=== PATIENT | male | born 1975 | race African-American/Black ===

== ENCOUNTER 2016-09-24 17:08 | Emergency (ER) | payer OTHER ==
[2016-09-24 17:35] VITALS: RESP 18; TEMP 97.7
--- NOTE | 2016-09-24 18:35 | ED ---
Upper Extremity HPI - General Chief Complaint: Extremity Injury, Upper Stated Complaint: Shoulder Pain Time Seen by Provider: 09/24/16 18:22 Source: patient, RN notes reviewed Mode of arrival: ambulatory Limitations: no limitations - History of Present Illness Initial Comments: 41-year-old male presents to the emergency department with a chief complaint of chronic right shoulder pain. Patient states he has history of right shoulder pain he can injections in the shoulder that is PAIN in the past. Patient states that it is flaring up again today. Patient states the bruises as discussed with ID degrees with movement of the right arm. Patient states he does have full range of motion there is chest pain of 93. Patient states there is no falls traumas or injuries to the arm. Patient states she's been playing appropriately last day or so. Wondering if we can give him something to help him with his discomfort. Patient states he also history of hemorrhoids. Patient states no smoking to the area and some light bleeding from the hemorrhoids. Patient states that his stools themselves haven't been normal has not noticed any black tarry stools. Patient states she's been doing absence THAT if there is anything else that can help summarize. Patient states she's also had these hemorrhoids for about a year now.Patient denies any recent fever , chills, shortness of breath, chest pain, back pain, abdominal pain, nausea vomiting, numbness or tingling, dysuria or hematuria, constipation or diarrhea, headaches or visual changes, or any other current symptoms. - Related Data Previous Rx's Medication Instructions Recorded Ibuprofen [Motrin] 600 mg PO Q6HR PRN #20 tab 09/24/16 Phenylephrine HCl/[place] Butter 1 each RC BID #20 supp.rect 09/24/16 [Preparation H Suppository] Allergies Allergy/AdvReac Type Severity Reaction Status Date / Time red dye Allergy Swelling Verified 09/24/16 17:35 shellfish derived Allergy Swelling Verified 09/24/16 17:35 Review of Systems ROS Statement: Those systems with pertinent positive or pertinent negative responses have been documented in the HPI. ROS Other: All systems not noted in ROS Statement are negative. Past Medical History Past Medical History: No Reported History History of Any Multi-Drug Resistant Organisms: None Reported Past Surgical History: No Surgical Hx Reported Past Psychological History: No Psychological Hx Reported Smoking Status: Current every day smoker Past Alcohol Use History: Occasional Past Drug Use History: None Reported General Exam Limitations: no limitations ENT exam: Present: normal exam, mucous membranes moist Neck exam: Present: normal inspection. Absent: tenderness, meningismus, lymphadenopathy Respiratory exam: Present: normal lung sounds bilaterally. Absent: respiratory distress, wheezes, rales, rhonchi, stridor Cardiovascular Exam: Present: regular rate, normal rhythm, normal heart sounds. Absent: systolic murmur, diastolic murmur, rubs, gallop, clicks Rectal exam: Present: normal rectal tone, hemorrhoids. Absent: bloody stool, fecal impaction Extremities exam: Present: normal inspection, full ROM (There is pain with any degree lateral lifting of the right shoulder), normal capillary refill. Absent : tenderness, pedal edema, joint swelling, calf tenderness Neurological exam: Present: alert, oriented X3 Psychiatric exam: Present: normal affect, normal mood Skin exam: Present: warm, dry, intact, normal color. Absent: rash Course Vital Signs 09/24/16 17:31 Temperature 97.7 F Pulse Rate 10 L Respiratory 18 Rate Blood Pressure 121/83 O2 Sat by Pulse 100 Oximetry Medical Decision Making - Medical Decision Making 41-year-old male presents emergency Department chief complaint of chronic right shoulder pain as well as hemorrhoids. This time patient's rectal exam does not show any gross thrombosed hemorrhoids. Some tenderness with patient on hemorrhoids suppositories. We also discussed with him Motrin for shoulder pain and we discussed follow-up with orthopedics this return parameters all patient' s questions. He stated he understood these plan. She will be discharged. Disposition Clinical Impression: Chronic right shoulder pain, Bleeding hemorrhoids Disposition: HOME SELF-CARE Condition: Stable Instructions: Hemorrhoids (ED), Shoulder Pain (ED) Additional Instructions: Please use medication as discussed. Please follow up with family doctor if symptoms have not improved over the next two days. Please return to the emergency room if your symptoms increase or worsen or for any other concerns. Prescriptions: Ibuprofen [Motrin] 600 mg PO Q6HR PRN #20 tab PRN Reason: Pain Phenylephrine HCl/[place] Butter [Preparation H Suppository] 1 each RC BID #20 supp.rect Referrals: Cory Carroll MD [STAFF PHYSICIAN] - 1-2 days Jerry Diane MD [STAFF PHYSICIAN] - 1-2 days Time of Disposition: 18:33
[2016-09-24 18:52] VITALS: BP 120/72; PULSE 64
== END 2016-09-24 18:47 | disposition home or self-care (01) ==
LOC: EC 17:08
DX: M25.511 Pain in right shoulder (principal); G89.29 Other chronic pain; K64.9 Unspecified hemorrhoids; F17.200 Nicotine dependence, unspecified, uncomplicated; Z91.013 Allergy to seafood; Z91.09 Other allergy status, other than to drugs and biological substances
CPT/HCPCS: 99283

== ENCOUNTER 2017-12-15 22:59 | Emergency (ER) | payer OTHER ==
[2017-12-15 23:08] VITALS: BP 117/83; PULSE 98; RESP 20; TEMP 98.2
[2017-12-15] MEDS ORDERED: DIPH,PERTUS(ACELL)TETVAC-LF 0.5 ML VIAL IM ONE (23:20)
--- NOTE | 2017-12-15 23:30 | ED ---
Upper Extremity HPI - General Chief Complaint: Extremity Injury, Upper Stated Complaint: IHS-Finger lac Time Seen by Provider: 12/15/17 23:11 Source: patient Mode of arrival: ambulatory Limitations: no limitations - History of Present Illness Initial Comments: This a 6-year-old male who denies past history presenting today for chief complaint of laceration to the right ring finger tip 7 days ago. 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 Patient just applied pressure and continue to work. He then tried super gluing the skin back on, however today the skin peeled off of his finger and he presents today to see if he needed further intervention. Patient denies if fever, chills, night sweats, increasing warmth and tenderness of the finger or purulent drainage. Additionally he denies any deep pain, numbness, tingling, loss of sensation, difficulty ranging at the MCP PIP or DIP joints of the affected finger. Patient states his tetanus is not up-to-date. Patient denies any recent shortness of breath, chest pain, back pain, abdominal pain, nausea or vomiting, numbness or tingling, dysuria or hematuria, constipation or diarrhea, headaches or visual changes, or any other complaints. - Related Data Home Medications Medication Instructions Recorded Confirmed No Known Home Medications 12/15/17 12/15/17 Allergies Allergy/AdvReac Type Severity Reaction Status Date / Time red dye Allergy Swelling Verified 09/24/16 17:35 shellfish derived Allergy Swelling Verified 09/24/16 17:35 Review of Systems ROS Statement: Those systems with pertinent positive or pertinent negative responses have been documented in the HPI. ROS Other: All systems not noted in ROS Statement are negative. Constitutional: Denies: fever, chills Respiratory: Denies: cough, dyspnea, wheezes, hemoptysis, stridor Cardiovascular: Denies: chest pain, palpitations Endocrine: Denies: fatigue Gastrointestinal: Denies: abdominal pain, nausea, vomiting Genitourinary: Denies: urgency, dysuria Musculoskeletal: Denies: joint swelling, arthralgia Skin: Reports: as per HPI Neurological: Denies: headache, weakness, numbness, paresthesias Past Medical History Past Medical History: No Reported History History of Any Multi-Drug Resistant Organisms: None Reported Past Surgical History: No Surgical Hx Reported Past Psychological History: No Psychological Hx Reported Smoking Status: Current every day smoker Past Alcohol Use History: Rare Past Drug Use History: None Reported General Exam - General Exam Comments Initial Comments: General: The patient is awake and alert, in no distress, and does not appear acutely ill. Eye: Pupils are equal, round and reactive to light, extra-ocular movements are intact. No nystagmus. There is normal conjunctiva bilaterally. No signs of icterus. Neck: The neck is supple, there is no tenderness or JVD. Cardiovascular: There is a regular rate and rhythm. No murmur, rub or gallop is appreciated. Respiratory: Lungs are clear to auscultation, respirations are non-labored, breath sounds are equal. No wheezes, stridor, rales, or rhonchi. Musculoskeletal: Normal ROM at the MCP, DIP and PIP joints of all 5 digits of the right hand, no tenderness. Strength 5/5. Sensation intact. Radial pulses equal bilaterally 2+. Capillary refill <2 seconds. Neurological: A&O x 3. CN II-XII intact, There are no obvious motor or sensory deficits. Coordination appears grossly intact. Speech is normal. Skin: Skin is warm and dry. Healing 1 cm laceration that involved 1/8 of the nailbed to the right ring finger medial aspect, there is no surround erythema, drainage, warmth to palpation. Psychiatric: Cooperative, appropriate mood & affect, normal judgment. Limitations: no limitations Course Vital Signs 12/15/17 23:04 Temperature 98.2 F Pulse Rate 98 Respiratory 20 Rate Blood Pressure 117/83 O2 Sat by Pulse 99 Oximetry Medical Decision Making - Medical Decision Making 42yo with cc of laceration 7 days ago. Given time of injury primary closure is not indicated. There are no signs of secondary infection. LAceration appear superficial no suspicion for damage to underlying structures or open fx. Area cleansed with idodine and sterile water. Bacitracin and sterile bandage applied as well as a finger split for additional protection. Pt recevied TDaP. Case discussed with Dr. Diallo at this time we feel patient is stable for discharge. Pt was instructed to use OTC ibuprofen or tylenol for pain as needed , and to return to the ER for signs of infection including warmth, tenderness, drainage, increasing erythema fever, chills. Patient stated that he agreed with plan. Patient discharged in stable condition. Disposition Clinical Impression: Laceration of finger with delay in treatment Disposition: HOME SELF-CARE Condition: Good Instructions: Laceration Without Closure (ED), Finger Laceration (ED) Additional Instructions: Please use over the counter medication as discussed. Please follow-up with family doctor in the next 2 days of symptoms have not improved. Please return to emergency room if the symptoms increase or worsen or for any other concerns, as discussed. Is patient prescribed a controlled substance at d/c from ED?: No Referrals: None,Stated [Primary Care Provider] - 1-2 days Time of Disposition: 23:30
== END 2017-12-15 23:55 | disposition home or self-care (01) ==
LOC: EC 22:59
DX: S61.214A Laceration without foreign body of right ring finger without damage to nail, initial encounter (principal); F17.200 Nicotine dependence, unspecified, uncomplicated; Z91.013 Allergy to seafood; Z91.09 Other allergy status, other than to drugs and biological substances; Z23 Encounter for immunization; W26.8XXA Contact with other sharp object(s), not elsewhere classified, initial encounter; Y92.89 Other specified places as the place of occurrence of the external cause
CPT/HCPCS: 90471; 90715; 99283

== ENCOUNTER 2020-04-18 09:52 | Emergency (ER) | payer OTHER ==
[2020-04-18 09:57] VITALS: BP 134/92; PULSE 94; RESP 16
[2020-04-18 09:58] VITALS: TEMP 98.7
[2020-04-18] MEDS ORDERED: LIDOCAINE 1% INJ 10MG/ML (20 ML MDV) SQ ONE (10:10)
--- NOTE | 2020-04-18 10:41 | ED ---
Wound/Laceration HPI - General Chief Complaint: Wound/Laceration Stated Complaint: IHS-hand lac Time Seen by Provider: 04/18/20 10:01 Source: patient, RN notes reviewed Mode of arrival: ambulatory Limitations: no limitations - History of Present Illness Initial Comments: This a 44-year-old male presents emergency Department chief complaint of left hand laceration. Patient has 3 lacerations 1 to the palmar aspect second to the fifth digit and the third to fourth digit. Patient's tetanus is updated 2 years ago. Patient's full range of motion no paresthesias. Patient states this happened at work today. Patient offers no other complaints. - Related Data Home Medications Medication Instructions Recorded Confirmed No Known Home Medications 12/15/17 12/15/17 Allergies Allergy/AdvReac Type Severity Reaction Status Date / Time red dye Allergy Swelling Verified 09/24/16 17:35 shellfish derived Allergy Swelling Verified 09/24/16 17:35 Review of Systems ROS Statement: Those systems with pertinent positive or pertinent negative responses have been documented in the HPI. ROS Other: All systems not noted in ROS Statement are negative. Past Medical History Past Medical History: No Reported History History of Any Multi-Drug Resistant Organisms: None Reported Past Surgical History: No Surgical Hx Reported Past Psychological History: No Psychological Hx Reported Smoking Status: Current every day smoker Past Alcohol Use History: Rare Past Drug Use History: Cocaine, Marijuana General Exam Limitations: no limitations General appearance: alert, in no apparent distress Head exam: Present: atraumatic, normocephalic, normal inspection Eye exam: Present: normal appearance, PERRL, EOMI. Absent: scleral icterus, conjunctival injection, periorbital swelling Respiratory exam: Present: normal lung sounds bilaterally. Absent: respiratory distress, wheezes, rales, rhonchi, stridor Cardiovascular Exam: Present: regular rate, normal rhythm, normal heart sounds. Absent: systolic murmur, diastolic murmur, rubs, gallop, clicks Extremities exam: Present: other (Left hand there is a 3 cm laceration just proximal to fifth digit, there is 2 cm laceration to the fifth digit with full range of motion full-strength a 3 cm laceration to the fourth digit with full range of motion neurovascular intact no tendon injuries noted) Neurological exam: Present: alert Skin exam: Present: warm, dry, intact, normal color. Absent: rash Course Vital Signs 04/18/20 09:55 Temperature 98.7 F Pulse Rate 94 Respiratory 16 Rate Blood Pressure 134/92 O2 Sat by Pulse 99 Oximetry Procedures - Laceration Laceration #1 Consent Obtained: verbal consent Indication: laceration Site: hand Size (cm): 3 Description: linear Depth: simple, single layer Anesthetic Used: lidocaine 1%, without epi Anesthesia Technique: local infiltration Amount (mls): 3 Pre-repair: wound explored, irrigated extensively, deep structures intact Type of Sutures: nylon Size of Sutures: 4-0 Number of Sutures: 3 Technique: simple, interrupted Patient Tolerated Procedure: well, no complications Laceration #2 Consent Obtained: verbal consent Indication: laceration Site: hand (Left hand fifth digit) Size (cm): 2 Description: linear Depth: simple, single layer Anesthetic Used: lidocaine 1%, without epi Anesthesia Technique: local infiltration Amount (mls): 2 Pre-repair: wound explored, irrigated extensively, deep structures intact Type of Sutures: nylon Size of Sutures: 4-0 Number of Sutures: 4 Technique: simple, interrupted Patient Tolerated Procedure: well, no complications Laceration #3 Consent Obtained: verbal consent Indication: laceration Site: hand (Left hand fourth digit) Size (cm): 3 Description: linear Depth: simple, single layer Anesthetic Used: lidocaine 1% Anesthesia Technique: local infiltration Amount (mls): 3 Pre-repair: wound explored, irrigated extensively, deep structures intact Type of Sutures: nylon Size of Sutures: 4-0 Number of Sutures: 6 Technique: simple, interrupted Patient Tolerated Procedure: well, no complications Medical Decision Making - Medical Decision Making 3 lacerations are thoroughly cleaned, closed known noted tendon injury. Patient was given wound care structures and return parameters. Patient will have follow up with S Disposition Clinical Impression: Hand laceration, Laceration of finger of left hand Disposition: HOME SELF-CARE Condition: Stable Instructions (If sedation given, give patient instructions): Care For Your Stitches (ED), Laceration (ED) Additional Instructions: Have sutures removed in 10 days.Please return to the Emergency Department if symptoms worsen or any other concerns. Is patient prescribed a controlled substance at d/c from ED?: No Referrals: None,Stated [Primary Care Provider] - 1-2 days Time of Disposition: 10:41
[2020-04-18] MEDS ORDERED: BACITRACIN OINT 1 EACH PACKET TOPICAL ONE (10:53)
== END 2020-04-18 11:16 | disposition home or self-care (01) ==
LOC: EC 09:52
DX: S61.217A Laceration without foreign body of left little finger without damage to nail, initial encounter (principal); S61.215A Laceration without foreign body of left ring finger without damage to nail, initial encounter; S61.412A Laceration without foreign body of left hand, initial encounter; F17.200 Nicotine dependence, unspecified, uncomplicated; Z91.041 Radiographic dye allergy status; Z91.013 Allergy to seafood; Y92.69 Other specified industrial and construction area as the place of occurrence of the external cause
CPT/HCPCS: 99282; 12004; J2001

== ENCOUNTER → 2020-05-12 | Outpatient (CLI) | payer OTHER ==
--- NOTE | 2020-05-12 11:33 | XR ---
EXAMINATION TYPE: XR hand complete LT DATE OF EXAM: 05/12/2020 COMPARISON: NONE HISTORY: 44-year-old male S6 1.402A TECHNIQUE: 3 views FINDINGS: No acute fracture, subluxation, or dislocation seen. There is some bony protuberance and hyperostosis of the second distal phalangeal tuft, suspect chronic posttraumatic deformity. This should be correl ated clinically. IMPRESSION: 1. Some bony protuberance and hyperostosis of the second distal phalangeal tuft, suspect a chronic po sttraumatic deformity. This should be correlated clinically. 2. Otherwise, no acute osseous abnormality seen.
== END | disposition home or self-care (01) ==
LOC: RADXRMAIN 10:56
PROVIDERS: ATTEND Emergency Medicine
DX: M85.832 Other specified disorders of bone density and structure, left forearm (principal)

== ENCOUNTER 2020-07-27 15:30 | Emergency (ER) | payer OTHER ==
--- NOTE | 2020-07-27 18:36 | ED ---
Recheck HPI - General Source: patient, RN notes reviewed Mode of arrival: ambulatory Limitations: no limitations <Samy Schulz - Last Filed: 07/27/20 19:38> <Tiffanie Multani - Last Filed: 07/29/20 12:04> - General Chief Complaint: Recheck/Abnormal Lab/Rx Stated Complaint: IHS possible infection-finger Time Seen by Provider: 07/27/20 18:14 - History of Present Illness Initial Comments: Patient is a 45-year-old male that presents to the ER concern for possible infection to a surgical site on his left hand. He noted that he flexor tendon repair on his index and ring finger in May. He was just concerned due to some minor nail changes. He was in no apparent distress pain or discomfort while sitting up in bed during exam and interview. He denied any chest pain shortness of breath headache nausea vomiting diarrhea constipation fever fatigue chills weakness numbness tingling. (Samy Schulz) - Related Data Home Medications Medication Instructions Recorded Confirmed No Known Home Medications 12/15/17 12/15/17 Allergies Allergy/AdvReac Type Severity Reaction Status Date / Time red dye Allergy Swelling Verified 07/27/20 16:55 shellfish derived Allergy Swelling Verified 07/27/20 16:55 Review of Systems ROS Other: All systems not noted in ROS Statement are negative. <Samy Schulz - Last Filed: 07/27/20 19:38> ROS Other: All systems not noted in ROS Statement are negative. <Tiffanie Multani - Last Filed: 07/29/20 12:04> ROS Statement: Those systems with pertinent positive or pertinent negative responses have been documented in the HPI. Past Medical History Past Medical History: No Reported History History of Any Multi-Drug Resistant Organisms: None Reported Past Surgical History: No Surgical Hx Reported Additional Past Surgical History / Comment(s): left hand surgery, flexer repair. Past Psychological History: No Psychological Hx Reported Smoking Status: Current every day smoker Past Alcohol Use History: Rare Past Drug Use History: Cocaine, Marijuana <Samy Schulz - Last Filed: 07/27/20 19:38> General Exam Limitations: no limitations General appearance: alert, in no apparent distress Head exam: Present: atraumatic, normocephalic, normal inspection Eye exam: Present: normal appearance, PERRL, EOMI. Absent: scleral icterus, conjunctival injection, periorbital swelling Neck exam: Present: normal inspection. Absent: tenderness, meningismus, lymphadenopathy Respiratory exam: Present: normal lung sounds bilaterally. Absent: respiratory distress, wheezes, rales, rhonchi, stridor Cardiovascular Exam: Present: regular rate, normal rhythm, normal heart sounds. Absent: systolic murmur, diastolic murmur, rubs, gallop, clicks GI/Abdominal exam: Present: soft, normal bowel sounds. Absent: distended, tenderness, guarding, rebound, rigid Extremities exam: Present: normal inspection, full ROM, normal capillary refill, other (Left index and middle finger. Incision well-healed no erythema no tenderness. Suture in place.). Absent: tenderness, pedal edema, joint swelling, calf tenderness Neurological exam: Present: alert, oriented X3, CN II-XII intact Psychiatric exam: Present: normal affect, normal mood Skin exam: Present: warm, dry, intact, normal color. Absent: rash <Samy Schulz - Last Filed: 07/27/20 19:38> Course Vital Signs 07/27/20 07/27/20 16:51 18:47 Temperature 98.1 F 98.0 F Pulse Rate 52 L 95 Respiratory 17 18 Rate Blood Pressure 137/73 113/76 O2 Sat by Pulse 100 98 Oximetry Medical Decision Making - Radiology Data Radiology results: report reviewed, image reviewed <Samy Schulz - Last Filed: 07/27/20 19:38> <Tiffanie Multani - Last Filed: 07/29/20 12:04> - Medical Decision Making 45-year-old male worried about possible surgical infection. X-ray of the left fingers ordered. Patient denied needing any pain medication. x-ray negative for any acute osseous abnormality. Take discussed with Dr. Multani, patient can discharge home with scheduled follow- up to orthopedist. (Samy Schulz) I was available for consultation in the emergency department. The history and physical exam were done by the midlevel provider. I was consulted for this patients care. I reviewed the case with the midlevel provider and based on their presentation of the patient, I agree with the assessment, medical decision making and plan of care as documented. Chart was dictated using [employer] dictation software. Attempts were made to correct any dictation errors however some typographical errors may persist. Patient was seen during a national state of emergency due to the Covid-19 pandemic. (Tiffanie Multani) - Radiology Data Hand x-ray no acute osseous abnormality. (Samy Schulz) Disposition Is patient prescribed a controlled substance at d/c from ED?: No Time of Disposition: 19:39 <Samy Schulz - Last Filed: 07/27/20 19:38> <Tiffanie Multani - Last Filed: 07/29/20 12:04> Clinical Impression: Encounter for wound re-check Disposition: HOME SELF-CARE Condition: Stable Instructions (If sedation given, give patient instructions): Stitches Removal (ED) Additional Instructions: Please return to the Emergency Department if symptoms worsen or any other concerns. Follow-up with orthopedist as scheduled. Can take [id number] anti-inflammatories for pain and symptom management. Referrals: None,Stated [Primary Care Provider] - 1-2 days
[2020-07-27 18:49] VITALS: BP 113/76; PULSE 95; RESP 18; TEMP 98
--- NOTE | 2020-07-27 19:11 | XR ---
RESULT: HISTORY: Pain TECHNIQUE: 3 views of the left hand were obtained. History of recent surgery. COMPARISON: 05/12/2020. FINDINGS: There are 3 punctate radiodense foci overlying the soft tissues at the ulnar aspect of the little fin ivone distal phalanx. There is no acute fracture or dislocation. The visualized joint spaces are preser angela. No radiographic evidence for osteomyelitis. IMPRESSION: Interval multiple punctate radiodense foci about the little finger distal phalanx soft tissues. Corre late clinically for radiopaque foreign body versus surgical change. Otherwise no acute osseous abnormality.
--- NOTE | 2020-07-27 20:07 | ED ---
Medical Decision Making - Medical Decision Making Patient issue is his left pinky and ring finger not his index and middle finger. Disposition Clinical Impression: Encounter for wound re-check Disposition: HOME SELF-CARE Condition: Stable Instructions (If sedation given, give patient instructions): Stitches Removal (ED) Additional Instructions: Please return to the Emergency Department if symptoms worsen or any other concerns. Follow-up with orthopedist as scheduled. Can take [id number] anti-inflammatories for pain and symptom management. Is patient prescribed a controlled substance at d/c from ED?: No Referrals: None,Stated [Primary Care Provider] - 1-2 days
== END 2020-07-27 20:14 | disposition home or self-care (01) ==
LOC: EC 15:30
DX: Z48.00 Encounter for change or removal of nonsurgical wound dressing (principal); F17.200 Nicotine dependence, unspecified, uncomplicated; F12.90 Cannabis use, unspecified, uncomplicated; F14.90 Cocaine use, unspecified, uncomplicated
CPT/HCPCS: 99282